=== PATIENT | male | born 1995 | race Caucasian/White ===

== ENCOUNTER 2020-03-07 00:54 | Emergency (ER) | payer BC, OTHER ==
[2020-03-07 01:24] VITALS: RESP 18; TEMP 98.6
[2020-03-07] MEDS ORDERED: KETOROLAC 30 MG/ML 1 ML VIAL IVP STA (02:07)
[2020-03-07 02:12] LABS: Basophils # (A) 0.1 k/uL (0-0.2); Basophils % (A) 0 %; Eosinophils # (A) 0.1 k/uL (0-0.7); Eosinophils % (A) 1 %; HCT 47.7 % (39.0-53.0); HGB 16.1 gm/dL (13.0-17.5); Lymphocytes % (A) 7 %; MCH 30.7 pg (25.0-35.0); MCHC 33.7 g/dL (31.0-37.0); MCV 90.9 fL (80.0-100.0); Monocytes # (A) 0.7 k/uL (0-1.0); Monocytes % (A) 5 %; Neutrophils # (A) 12.9 k/uL (1.3-7.7); Neutrophils % (A) 87 %; Platelet Count 225 k/uL (150-450); RBC 5.24 m/uL (4.30-5.90); RDW 11.4 % (11.5-15.5); WBC 14.9 k/uL (3.8-10.6)
--- NOTE | 2020-03-07 02:22 | ED ---
Chest Pain HPI - General Chief Complaint: Chest Pain Stated Complaint: chest discomfort Time Seen by Provider: 03/07/20 01:28 Source: patient, EMS Mode of arrival: EMS Limitations: no limitations, language barrier - History of Present Illness MD Complaint: chest pain Onset/Timin -: hour(s) Onset: during rest Pain Location: substernal Pain Radiation: abdomen Severity: severe Severity scale (1-10): 8 Quality: aching Consistency: constant Improves With: remaining still Worsens With: movement Treatments Prior to Arrival: none - Related Data Previous Rx's Medication Instructions Recorded Ibuprofen [Motrin] 600 mg PO Q8HR PRN #20 tab 03/07/20 Allergies Allergy/AdvReac Type Severity Reaction Status Date / Time No Known Allergies Allergy Verified 03/07/20 13:29 Review of Systems ROS Statement: Those systems with pertinent positive or pertinent negative responses have been documented in the HPI. ROS Other: All systems not noted in ROS Statement are negative. Constitutional: Denies: fever, chills Respiratory: Denies: cough, dyspnea, wheezes, hemoptysis Cardiovascular: Reports: as per HPI, chest pain. Denies: palpitations, orthopnea, edema, syncope Gastrointestinal: Denies: abdominal pain, nausea, vomiting, melena, hematochezia Genitourinary: Denies: dysuria, hematuria Musculoskeletal: Denies: back pain Skin: Denies: rash Neurological: Denies: headache, weakness, numbness EKG Findings - EKG Results: EKG: interpreted by PAULETTE GIVENS, sinus rhythm (Rate 94 bpm), normal axis, normal QRS, normal ST/T, no acute changes Past Medical History Past Medical History: No Reported History History of Any Multi-Drug Resistant Organisms: None Reported Past Surgical History: No Surgical Hx Reported Past Psychological History: No Psychological Hx Reported Smoking Status: Current every day smoker Past Alcohol Use History: None Reported Past Drug Use History: Marijuana General Exam Limitations: no limitations, language barrier General appearance: alert, in no apparent distress Head exam: Present: atraumatic, normocephalic Eye exam: Present: normal appearance. Absent: scleral icterus, conjunctival injection ENT exam: Present: normal oropharynx Neck exam: Present: normal inspection Respiratory exam: Present: normal lung sounds bilaterally. Absent: respiratory distress, wheezes, rales, rhonchi, stridor, chest wall tenderness Cardiovascular Exam: Present: regular rate, normal rhythm, normal heart sounds. Absent: systolic murmur, diastolic murmur, rubs, gallop GI/Abdominal exam: Present: soft. Absent: distended, tenderness, guarding, rebound, rigid, mass Extremities exam: Present: normal inspection, normal capillary refill. Absent: pedal edema, calf tenderness Back exam: Present: normal inspection. Absent: CVA tenderness (R), CVA tende rness (L) Neurological exam: Present: alert Skin exam: Present: warm, dry, intact, normal color. Absent: rash Course Vital Signs 03/07/20 03/07/20 03/07/20 01:00 01:30 02:00 Temperature 98.6 F Pulse Rate 87 85 82 Respiratory 18 18 18 Rate Blood Pressure 141/87 139/85 142/88 O2 Sat by Pulse 100 100 100 Oximetry 03/07/20 03/07/20 03/07/20 02:23 02:30 03:00 Temperature Pulse Rate 83 78 Respiratory 18 18 18 Rate Blood Pressure 133/74 136/80 O2 Sat by Pulse 100 100 Oximetry 03/07/20 03/07/20 03:30 04:00 Temperature Pulse Rate 80 79 Respiratory 18 18 Rate Blood Pressure 126/70 124/70 O2 Sat by Pulse 99 99 Oximetry Disposition Clinical Impression: Chest pain Disposition: HOME SELF-CARE Condition: Good Instructions (If sedation given, give patient instructions): Chest Pain (ED) Prescriptions: Ibuprofen [Motrin] 600 mg PO Q8HR PRN #20 tab PRN Reason: Pain Is patient prescribed a controlled substance at d/c from ED?: No Referrals: None,Stated [Primary Care Provider] - 1-2 days
[2020-03-07] MEDS ORDERED: MAG HYDROX/AL HYDROX/SIMETH 30 ML, HYOSCYAMINE ELIXIR 10 ML, LIDOCAINE VISCOUS 2% 10 ML PO STA ×3 (02:23)
[2020-03-07 02:27] LABS: ALT 16 U/L (4-49); AST 23 U/L (17-59); African American GFR (CKD) >90 (>60 ml/min/1.73 sqM); Albumin 4.8 g/dL (3.5-5.0); Alkaline Phosphatase 74 U/L (38-126); Amylase 64 U/L (30-110); Anion Gap 9 mmol/L; Blood Urea Nitrogen 14 mg/dL (9-20); Calcium 9.2 mg/dL (8.4-10.2); Carbon Dioxide 27 mmol/L (22-30); Chloride 104 mmol/L (98-107); Glucose 147 mg/dL (74-99); Non-African American GFR(CKD) >90 (>60 ml/min/1.73 sqM); Potassium 3.6 mmol/L (3.5-5.1); Sodium 140 mmol/L (137-145); Total Bilirubin 0.9 mg/dL (0.2-1.3); Total Protein 7.8 g/dL (6.3-8.2)
--- NOTE | 2020-03-07 02:29 | XR ---
EXAMINATION TYPE: XR chest 2V DATE OF EXAM: 03/07/2020 COMPARISON: 06/29/2012 HISTORY: Chest pain TECHNIQUE: 2 views FINDINGS: Heart and mediastinum are normal. Lungs are clear. Diaphragm is normal. Bony thorax appears normal. Pulmonary vascularity is normal. IMPRESSION: Normal chest. No change.
[2020-03-07 04:03] VITALS: BP 124/70; PULSE 79
== END 2020-03-07 04:09 | disposition home or self-care (01) ==
LOC: EC 00:54
DX: R07.9 Chest pain, unspecified (principal); F17.200 Nicotine dependence, unspecified, uncomplicated
CPT/HCPCS: 36415; 93005; 85379; 80053; 82150; 83690; 84484; 85025; 71046; 99285; 96374; J1885; 74018; 76705; 83735; 85610; 85730; 86140; 96361; 96375

== ENCOUNTER 2020-03-07 13:09 | Emergency (ER) | payer BC ==
[2020-03-07 13:29] VITALS: RESP 18
[2020-03-07] MEDS ORDERED: SODIUM CHLORIDE 0.9% 1,000 ML IV STA (13:55)
[2020-03-07] MEDS ORDERED: KETOROLAC 30 MG/ML 1 ML VIAL IVP STA (13:56)
--- NOTE | 2020-03-07 13:59 | ED ---
General Adult HPI - General Chief complaint: Chest Pain Stated complaint: Chest pain recheck Time Seen by Provider: 03/07/20 13:34 Source: patient, family, RN notes reviewed Mode of arrival: wheelchair Limitations: no limitations - History of Present Illness Initial comments: Patient is a pleasant 25-year-old male presenting to the emergency department chest discomfort. Onset of symptoms was yesterday. Discomfort is diffuse and feels sharp. Discomfort is greatly increased with movement and position changes. Discomfort is also increased with breaths. Discomfort is mild to moderate at rest. No fever. No cough. There is some discomfort of the upper abdomen as well however more his anterior chest. Patient was in the emergency department last night and diagnosed with costochondritis per family. No history of similar symptoms previously. Patient states he did have improvement of symptoms with Toradol however symptoms returned after about 4 hours or so. No leg pain or leg swelling. Symptoms worsen with lying down and improved with si tting upright. - Related Data Previous Rx's Medication Instructions Recorded Ibuprofen [Motrin] 600 mg PO Q8HR PRN #20 tab 03/07/20 Allergies Allergy/AdvReac Type Severity Reaction Status Date / Time No Known Allergies Allergy Verified 03/07/20 13:29 Review of Systems ROS Statement: Those systems with pertinent positive or pertinent negative responses have been documented in the HPI. ROS Other: All systems not noted in ROS Statement are negative. Constitutional: Denies: fever Eyes: Denies: eye pain ENT: Denies: ear pain Respiratory: Denies: cough, dyspnea Cardiovascular: Reports: chest pain Endocrine: Denies: fatigue Gastrointestinal: Reports: as per HPI Genitourinary: Denies: dysuria Musculoskeletal: Denies: back pain Skin: Denies: rash Neurological: Denies: weakness Past Medical History Past Medical History: No Reported History History of Any Multi-Drug Resistant Organisms: None Reported Past Surgical History: No Surgical Hx Reported Past Psychological History: No Psychological Hx Reported Smoking Status: Current every day smoker Past Alcohol Use History: None Reported Past Drug Use History: Marijuana General Exam Limitations: no limitations General appearance: alert Head exam: Present: normocephalic Eye exam: Present: normal appearance Respiratory exam: Present: normal lung sounds bilaterally, chest wall tenderness (Diffusely) Cardiovascular Exam: Present: regular rate, normal rhythm Expanded Peripheral pulses: 2+: Radial (R), Radial (L), Dorsalis Pedis (R), Dorsalis Pedis (L) GI/Abdominal exam: Present: soft, tenderness (Mild tenderness right upper quadrant and epigastric region). Absent: distended Extremities exam: Present: normal inspection. Absent: pedal edema, calf tenderness Back exam: Present: normal inspection Neurological exam: Present: alert Psychiatric exam: Present: normal affect, normal mood Skin exam: Present: normal color Course Vital Signs 03/07/20 03/07/20 03/07/20 13:27 13:44 13:50 Temperature 98.8 F Pulse Rate 74 76 Respiratory 18 31 H 18 Rate Blood Pressure 112/72 128/80 O2 Sat by Pulse 100 100 Oximetry 03/07/20 03/07/20 03/07/20 14:00 14:10 14:20 Temperature Pulse Rate 77 70 71 Respiratory Rate Blood Pressure 128/80 131/87 131/87 O2 Sat by Pulse 100 100 100 Oximetry 03/07/20 03/07/20 03/07/20 14:30 14:40 14:50 Temperature Pulse Rate 80 65 70 Respiratory 8 L 9 L Rate Blood Pressure 131/87 133/81 133/81 O2 Sat by Pulse 100 100 100 Oximetry 03/07/20 03/07/20 03/07/20 14:54 15:00 15:10 Temperature Pulse Rate 69 76 78 Respiratory 18 11 L 12 Rate Blood Pressure 133/89 133/81 128/88 O2 Sat by Pulse 100 100 100 Oximetry 03/07/20 03/07/20 03/07/20 15:20 15:30 15:40 Temperature Pulse Rate 71 80 74 Respiratory 7 L 7 L 18 Rate Blood Pressure 128/88 128/88 136/83 O2 Sat by Pulse 100 100 99 Oximetry 03/07/20 03/07/20 03/07/20 15:50 16:00 16:10 Temperature Pulse Rate 72 77 71 Respiratory 18 14 18 Rate Blood Pressure 136/83 136/83 131/82 O2 Sat by Pulse 99 100 100 Oximetry EKG Findings - EKG Comments: EKG Findings:: Normal sinus rhythm at 74. CT 132. QRS 86. QT 346. QTc 384. Normal axis. Normal QRS. Borderline ST change in multiple leads concerning for pericarditis. Medical Decision Making - Medical Decision Making Patient reevaluated and is feeling much better. Patient and family updated on results. Mother was not comfortable discharging case was discussed with Dr. Son who was willing to admit if they're not comfortable with discharge. Patient then states he does not want to stay and refuses admission. They're agreeable to close follow-up and they're recommended to have an echo done. They're advised to return for shortness of breath, fever, or worsening symptoms. Patient does have a prescription for Motrin already. He is advised to have this prescription filled and take. - Lab Data Result diagrams: 03/07/20 13:44 03/07/20 13:44 Lab Results 03/07/20 03/07/20 03/07/20 Range/Units 13:44 13:44 13:44 WBC 10.5 (3.8-10.6) k/uL RBC 5.13 (4.30-5.90) m/uL Hgb 15.6 (13.0-17.5) gm/dL Hct 46.2 (39.0-53.0) % MCV 90.2 (80.0-100.0) fL MCH 30.5 (25.0-35.0) pg MCHC 33.8 (31.0-37.0) g/dL RDW 11.5 (11.5-15.5) % Plt Count 218 (150-450) k/uL Neutrophils % 72 % Lymphocytes % 16 % Monocytes % 9 % Eosinophils % 1 % Basophils % 1 % Neutrophils # 7.6 (1.3-7.7) k/uL Lymphocytes # 1.6 (1.0-4.8) k/uL Monocytes # 0.9 (0-1.0) k/uL Eosinophils # 0.1 (0-0.7) k/uL Basophils # 0.1 (0-0.2) k/uL PT 11.5 (9.0-12.0) sec INR 1.1 (<1.2) APTT 27.1 (22.0-30.0) sec D-Dimer <0.17 (<0.60) mg/L FEU Sodium 137 (137-145) mmol/L Potassium 4.4 (3.5-5.1) mmol/L Chloride 107 (98-107) mmol/L Carbon Dioxide 21 L (22-30) mmol/L Anion Gap 9 mmol/L BUN 12 (9-20) mg/dL Creatinine 0.72 (0.66-1.25) mg/dL Est GFR (CKD-EPI)AfAm >90 (>60 ml/min/1.73 sqM) Est GFR (CKD-EPI)NonAf >90 (>60 ml/min/1.73 sqM) Glucose 87 (74-99) mg/dL Calcium 9.2 (8.4-10.2) mg/dL Magnesium 2.2 (1.6-2.3) mg/dL Total Bilirubin 2.2 H (0.2-1.3) mg/dL AST 24 (17-59) U/L ALT 14 (4-49) U/L Alkaline Phosphatase 66 (38-126) U/L Troponin I (0.000-0.034) ng/mL C-Reactive Protein (<10.0) mg/L Total Protein 7.2 (6.3-8.2) g/dL Albumin 4.5 (3.5-5.0) g/dL Amylase 45 (30-110) U/L Lipase 29 (23-300) U/L 03/07/20 03/07/20 Range/Units 13:44 15:47 WBC (3.8-10.6) k/uL RBC (4.30-5.90) m/uL Hgb (13.0-17.5) gm/dL Hct (39.0-53.0) % MCV (80.0-100.0) fL MCH (25.0-35.0) pg MCHC (31.0-37.0) g/dL RDW (11.5-15.5) % Plt Count (150-450) k/uL Neutrophils % % Lymphocytes % % Monocytes % % Eosinophils % % Basophils % % Neutrophils # (1.3-7.7) k/uL Lymphocytes # (1.0-4.8) k/uL Monocytes # (0-1.0) k/uL Eosinophils # (0-0.7) k/uL Basophils # (0-0.2) k/uL PT (9.0-12.0) sec INR (<1.2) APTT (22.0-30.0) sec D-Dimer (<0.60) mg/L FEU Sodium (137-145) mmol/L Potassium (3.5-5.1) mmol/L Chloride (98-107) mmol/L Carbon Dioxide (22-30) mmol/L Anion Gap mmol/L BUN (9-20) mg/dL Creatinine (0.66-1.25) mg/dL Est GFR (CKD-EPI)AfAm (>60 ml/min/1.73 sqM) Est GFR (CKD-EPI)NonAf (>60 ml/min/1.73 sqM) Glucose (74-99) mg/dL Calcium (8.4-10.2) mg/dL Magnesium (1.6-2.3) mg/dL Total Bilirubin (0.2-1.3) mg/dL AST (17-59) U/L ALT (4-49) U/L Alkaline Phosphatase (38-126) U/L Troponin I <0.012 (0.000-0.034) ng/mL C-Reactive Protein 33.5 H (<10.0) mg/L Total Protein (6.3-8.2) g/dL Albumin (3.5-5.0) g/dL Amylase (30-110) U/L Lipase (23-300) U/L - Radiology Data Radiology results: report reviewed (Ultrasound gallbladder shows no gallstones or evidence of cholecystitis.), image reviewed (Two-view chest x-ray shows no acute process. Abdominal x-ray shows nonspecific, nonobstructive pattern.) Disposition Clinical Impression: Acute pericarditis Disposition: HOME SELF-CARE Condition: Stable Instructions (If sedation given, give patient instructions): Acute Pericarditis (ED) Additional Instructions: Please take Motrin. Please follow-up with primary care physician or cardiology in the next couple of days for recheck. Consider echo. Return for difficulty breathing, fevers, increased pain, worsening or changing symptoms or other concerns. Is patient prescribed a controlled substance at d/c from ED?: No Referrals: Jaylon Lu MD [STAFF PHYSICIAN] - 1-2 days Mookie Kirkpatrick III, MD [STAFF PHYSICIAN] - 1-2 days Time of Disposition: 16:26
[2020-03-07 14:14] LABS: Basophils # (A) 0.1 k/uL (0-0.2); Basophils % (A) 1 %; Eosinophils # (A) 0.1 k/uL (0-0.7); Eosinophils % (A) 1 %; HCT 46.2 % (39.0-53.0); HGB 15.6 gm/dL (13.0-17.5); Lymphocytes # (A) 1.6 k/uL (1.0-4.8); Lymphocytes % (A) 16 %; MCH 30.5 pg (25.0-35.0); MCHC 33.8 g/dL (31.0-37.0); MCV 90.2 fL (80.0-100.0); Mean Platelet Volume 8.1; Monocytes # (A) 0.9 k/uL (0-1.0); Monocytes % (A) 9 %; Neutrophils # (A) 7.6 k/uL (1.3-7.7); Neutrophils % (A) 72 %; Platelet Count 218 k/uL (150-450); RBC 5.13 m/uL (4.30-5.90); RDW 11.5 % (11.5-15.5); WBC 10.5 k/uL (3.8-10.6)
[2020-03-07 14:23] LABS: ALT 14 U/L (4-49); AST 24 U/L (17-59); African American GFR (CKD) >90 (>60 ml/min/1.73 sqM); Albumin 4.5 g/dL (3.5-5.0); Alkaline Phosphatase 66 U/L (38-126); Amylase 45 U/L (30-110); Anion Gap 9 mmol/L; Blood Urea Nitrogen 12 mg/dL (9-20); Calcium 9.2 mg/dL (8.4-10.2); Carbon Dioxide 21 mmol/L (22-30); Chloride 107 mmol/L (98-107); Glucose 87 mg/dL (74-99); Magnesium 2.2 mg/dL (1.6-2.3); Non-African American GFR(CKD) >90 (>60 ml/min/1.73 sqM); Potassium 4.4 mmol/L (3.5-5.1); Sodium 137 mmol/L (137-145); Total Bilirubin 2.2 mg/dL (0.2-1.3); Total Protein 7.2 g/dL (6.3-8.2)
[2020-03-07 14:32] LABS: INR 1.1 (<1.2); Partial Thromboplastin Time 27.1 sec (22.0-30.0); Prothrombin Time 11.5 sec (9.0-12.0)
--- NOTE | 2020-03-07 14:33 | XR ---
EXAMINATION TYPE: XR chest 2V DATE OF EXAM: 03/07/2020 COMPARISON: Prior chest x-ray earlier today. HISTORY: Chest pain. TECHNIQUE: Frontal and lateral views of the chest are obtained. FINDINGS: Overlying EKG leads are in current study. There is no focal air space opacity, pleural effu yaneth, or pneumothorax seen. The cardiac silhouette size is within normal limits. The osseous struc tures are intact. IMPRESSION: No acute cardiopulmonary process. No significant change from study earlier today.
--- NOTE | 2020-03-07 14:34 | XR ---
EXAMINATION TYPE: XR abdomen 1V DATE OF EXAM: 03/07/2020 2:19 PM CLINICAL HISTORY: Abdominal pain. TECHNIQUE: Two Upright KUB images of the abdomen are obtained. COMPARISON: None. FINDINGS: Scattered gas is seen in non-distended stomach. Some paucity of small bowel gas. Gas and fe shila material is seen in non-distended colon and rectum. There is no visceromegaly, pneumoperitoneum, or abnormal calcification appreciated. The lung bases are clear and the osseous structures are intact . IMPRESSION: Overall nonspecific but strongly favor nonobstructive bowel gas pattern.
[2020-03-07 14:40] LABS: D-Dimer <0.17 mg/L FEU (<0.60)
--- NOTE | 2020-03-07 14:41 | US ---
EXAMINATION TYPE: US gallbladder DATE OF EXAM: 03/07/2020 COMPARISON: NONE CLINICAL HISTORY: pain. Pain midline ABD EXAM MEASUREMENTS: Liver Length: 20.4 cm Gallbladder Wall: 0.2 cm CBD: 0.3 cm Right Kidney: 10.3 x 4.3 x 5.1 cm Pancreas: wnl Liver: Enlarged Gallbladder: wnl Evidence for sonographic Dean's sign: No CBD: wnl Right Kidney: wnl Visualized pancreas is within normal limits. Visualized liver shows no worrisome mass or ductal dilat ation. Gallbladder felt within normal limits. Right kidney shows no hydronephrosis. IMPRESSION: NO SHADOWING MOBILE GALLSTONES OR ULTRASOUND EVIDENCE FOR ACUTE CHOLECYSTITIS.
[2020-03-07] MEDS ORDERED: MORPHINE SULFATE 4 MG/ML SYRINGE IVP STA (14:57)
[2020-03-07 16:38] VITALS: BP 134/84; PULSE 66; TEMP 98.6
== END 2020-03-07 16:42 | disposition home or self-care (01) ==
LOC: EC 13:09
DX: I30.9 Acute pericarditis, unspecified (principal); F17.200 Nicotine dependence, unspecified, uncomplicated
CPT/HCPCS: 36415; 93005; 85379; 80053; 82150; 83690; 83735; 84484; 85025; 85610; 85730; 86140; 71046; 74018; 76705; 99285; 96374; 96375; 96361 ×3; J2270; J1885